=== PATIENT | female | born 1960 | race Caucasian/White ===

== ENCOUNTER → 2020-03-15 11:58 | Outpatient (BNVA) | payer OTHER, SELFPAY | PROVIDERS: Family Provider Family Medicine; PCP Family Medicine; Referring Provider Family Medicine; Visit Provider Family Medicine | DX: I95.9 Hypotension, unspecified (principal); R00.1 Bradycardia, unspecified; I49.3 Ventricular premature depolarization; I95.0 Idiopathic hypotension; M51.35 Other intervertebral disc degeneration, thoracolumbar region | CPT/HCPCS: 80053; 84439; 84443; 85025 ==

== ENCOUNTER 2020-05-05 13:19 | Outpatient (CLI) | payer OTHER, SELFPAY ==
--- NOTE | 2020-05-05 13:30 | USCV_ITS ---
Coco Dela Cruz Age: 59 Gender: F : 1960 Exam Date: 05/05/2020 13:42 Ordering Phys: Julia Lambert MD ([email or web address]) Technologist: Venus Higginbotham Exam Location: [facility] [place] Indication: chest pain BP: / HR: 84 Rhythm: PVCs Technical Quality: Good MEASUREMENTS (Male / Female) Normal Values 2D ECHO LV Diastolic Diameter PLAX 4.6 cm 4.2 - 5.9 / 3.9 - 5.3 cm LV Systolic Diameter PLAX 3.7 cm LV Chamber Size 4.0 cm IVS Diastolic Thickness 1.1 cm 0.6 - 1.0 / 0.6 - 0.9 cm IVS Systolic Thickness 1.7 cm LVPW Diastolic Thickness 1.8 cm 0.6 - 1.0 / 0.6 - 0.9 cm LVPW Systolic Thickness 1.6 cm RV Chamber Size 2.6 cm LVOT Diameter 2.0 cm LV Ejection Fraction 2D Teich 39.4 % LV Ejection Fraction MOD 2C 12.8 % LV Ejection Fraction 2C AL 29.5 % LA Diameter 4.1 cm LA Width 2.9 cm LA Height 3.1 cm RA Width 2.7 cm RA Height 3.7 cm Aorta at Sinotubular Diameter 3.3 cm M-MODE LV Diastolic Diameter MM 5.5 cm 4.2 - 5.9 / 3.9 - 5.3 cm LV Systolic Diameter MM 4.0 cm LV Ejection Fraction MM Teich 53.3 % IVS Diastolic Thickness MM 1.3 cm 0.6 - 1.0 / 0.6 - 0.9 cm IVS Systolic Thickness MM 1.4 cm LVPW Diastolic Thickness MM 1.1 cm 0.6 - 1.0 / 0.6 - 0.9 cm LVPW Systolic Thickness MM 1.3 cm RV Diastolic Diameter MM 1.3 cm Aortic Annulus Diameter 3.3 cm LA Ao Ratio MM 1.3 MV E Point Septal Separation 0.8 cm DOPPLER AV Peak Velocity 184.0 cm/s LVOT Peak Velocity 89.0 cm/s AV Area Cont Eq vti 1.5 cm squared AV Area Cont Eq pk 1.5 cm squared MV E' Velocity 14.0 cm/s TR Peak Velocity 239.0 cm/s TR Peak Gradient 22.8 mmHg TR Mean Velocity 79.9 cm/s TR Mean Gradient 2.9 mmHg TR Velocity Time Integral 26.6 cm TV Peak E Velocity 79.0 cm/s Right Atrial Pressure 3.0 mmHg Pulmonary Artery Systolic Pressu 25.8 mmHg PV Peak Velocity 56.0 cm/s RV Acceleration Time 0.1 s RV Ejection Time 0.3 s RV AcT/ET 0.5 FINDINGS Left Ventricle Normal left ventricular cavity size. Normal left ventricular systolic function. Left ventricular ejection fraction is estimated at 50-55 %. There is possible mild basal inferoseptal hypokinesis. Right Ventricle Normal right ventricular size and systolic function. Right ventricular systolic pressure 25.8 mmHg. Right Atrium Normal right atrial size. Left Atrium Upper normal left atrial size. Mitral Valve Mildly thickened mitral valve. No mitral valve stenosis. Moderate mitral valve regurgitation. Aortic Valve Aortic valve not well visualized. No aortic valve stenosis. Trace aortic valve regurgitation. Tricuspid Valve Structurally normal tricuspid valve. Trace tricuspid valve regurgitation. Pulmonic Valve No pulmonary valve stenosis. Trace pulmonary valve regurgitation. Pericardium No pericardial effusion. Aorta Normal size aortic root and proximal ascending aorta. CONCLUSIONS 1. Normal left ventricular cavity size and systolic function. Left ventricular ejection fraction is estimated at 50-55 %. There is possible mild basal inferoseptal hypokinesis. 2. Normal right ventricular size and systolic function. 3. Normal pulmonary artery pressure estimated 26 mmHg. 4. Moderate posteriorly directed mitral valve regurgitation. 5. Frequent PACs and PVCs noted during the study. 6. No prior similar studies to compare. Julia Lambert MD (Electronically Signed) Final Date: 07 May 2020 12:19 S
== END 2020-05-05 13:20 | disposition home or self-care (01) ==
LOC: RAD 13:21
PROVIDERS: PCP Family Medicine; Visit Provider Internal Medicine Cardiovascular Disease
DX: I49.3 Ventricular premature depolarization (principal); I34.0 Nonrheumatic mitral (valve) insufficiency; R07.9 Chest pain, unspecified
CPT/HCPCS: 93306

== ENCOUNTER → 2020-08-20 17:17 | Outpatient (BNVA) | payer OTHER, SELFPAY | PROVIDERS: PCP Family Medicine; Visit Provider Emergency Medicine | DX: Z11.59 Encounter for screening for other viral diseases (principal) | CPT/HCPCS: 87635 ==

== ENCOUNTER 2020-09-24 16:48 | Emergency (ER) | payer OTHER, SELFPAY ==
[2020-09-24 17:01] VITALS: BP 100/64; PULSE 93; RESP 18; TEMP 36.8; O2SAT 93; BMI 29.0
--- NOTE | 2020-09-24 17:20 | W.ED.ALLEREA ---
HPI - Allergic Reaction General: Chief complaint: Allergic Reaction Stated complaint: SPIDER BITE, HAVING ALLERGIC REACTION/DIFF BREATH Time Seen by Provider: 09/24/20 17:08 History of Present Illness: HPI narrative: 60-year-old female began having a rash this afternoon at around 330 presents here shortly after 5:00. She is a rash on her left forearm has been spreading proximally until boil is intensely pruritic. She is not sure what she got into that was new or different. She is not had any significant difficulty breathing. She denies any fever sweats chills nausea vomiting or diarrhea or any other symptoms. She is not had episodes like this in the past. MD complaint: allergic reaction and hives Onset (ago): hour(s) Exposure: unknown Associated symptoms: Reports itching and rash; Deny abdominal pain, difficulty breathing, dysphagia, dizziness, facial swelling, hoarseness, lip swelling, nausea, tongue swelling or vomiting Severity: moderate Treatment prior to arrival: none Previous Allergic Reaction History: none Review of Systems Const: Denies: fever(s), chills, body aches, change in appetite, fatigue or malaise ENMT: Denies: hoarseness Card: Denies: chest pain, edema, dyspnea on exertion or orthopnea Resp: Denies: dyspnea, productive cough or non-productive cough GI: Denies: abdominal pain, nausea, vomiting or dysphagia : Denies: flank pain, difficulty voiding, dysuria, urinary frequency or urinary urgency Skin/Breast: Denies: rash or pruritus Neuro: Denies: dizziness All/Imm: Denies: tongue swelling or facial swelling [facility] ED PFSH: Medical History (Updated 09/24/20 @ 17:22 by Enrique Cline DO) Degenerative disc disease Depression PVCs (premature ventricular contractions) Surgical History History of adenectomy History of appendectomy History of carpal tunnel release History of elbow surgery History of hand surgery History of oophorectomy History of surgery on wrist History of tonsillectomy History of total hysterectomy Social History Smoking and tobacco status: current every day smoker Alcohol intake: never Physical Exam Const: COMMON NORMALS: no acute distress GENERAL APPEARANCE: cooperative and comfortable ORIENTATION/CONSCIOUSNESS: Yes awake, Yes oriented to person, Yes oriented to place and Yes oriented to time HENMT: COMMON NORMALS: normocephalic, atraumatic and hearing grossly normal bilaterally HEAD & SCALP: normocephalic and atraumatic Eye: COMMON NORMALS: Equal, round and reactive pupils present, EOMs intact bilaterally, conjunctivae normal and no scleral icterus CONJUNCTIVA: Yes conjunctivae normal PUPIL: Yes Equal, round and reactive pupils present Neck/C-Spine: COMMON NORMALS: no JVD Lymph: LYMPHATIC: no lymphadenopathy noted and no lymphedema noted Resp: COMMON NORMALS: normal respiratory effort, No retractions, No use of accessory muscles and clear to auscultation bilaterally AUSCULTATION: clear to auscultation bilaterally Cardio: COMMON NORMALS: no JVD, regular rate, regular rhythm and No murmurs present (Cardio) RATE: regular rate RHYTHM: regular rhythm GI: COMMON NORMALS: Soft to palpation and No hepatosplenomegaly present AUSCULTATION: Yes normoactive bowel sounds PALPATION: Yes Soft to palpation, No Tenderness to palpation present (GI), No Guarding due to palpation present (GI) and Yes No hepatosplenomegaly present Extremity: COMMON NORMALS: normal to inspection, capillary refill normal, no clubbing, cyanosis or edema, no calf tenderness and no pedal edema Neuro: SENSORIUM/ORIENTATION: Yes oriented to person, Yes oriented to place and Yes oriented to time Skin: NARRATIVE SKIN EXAM: Urticaria of the left forearm is most dense is also present on the trunk more sparing pattern. No bulla no signs of infection or induration no sign of abscess. Course Vital Signs: Vital signs: Vital Signs Temperature 98.3 F 09/24/20 17:01 Pulse Rate 93 09/24/20 17:01 Respiratory Rate 18 09/24/20 17:01 Blood Pressure 100/64 09/24/20 17:01 Pulse Oximetry 93 09/24/20 17:01 Discharge Plan Discharge Patient Disposition: Home Clinical Impression: Allergic reaction Condition: Stable Prescriptions: New hydroxyzine HCl 25 mg tablet 25 mg PO Q6H PRN (Reason: itching) Qty: 20 RF: 0 methylprednisolone [Medrol (Hugo)] 4 mg tablets,dose pack See Rx Instructions .ROUTE .COMPLEX Qty: 21 RF: 0 No Action fluticasone propionate [Allergy Relief (fluticasone)] 50 mcg/actuation spray,suspension 2 spray INTRANASAL DAILY RF: 0 sertraline 100 mg tablet 100 mg PO DAILY 90 Days Qty: 90 RF: 3 hydrochlorothiazide 12.5 mg capsule See Rx Instructions .ROUTE .COMPLEX Qty: 90 RF: 3 trazodone 100 mg tablet 100 mg PO DAILY Qty: 90 RF: 1 Discharge Orders: Discharge ED (Routine); Ordered 09/24/20 Ordered By: Enrique Cline Referrals: Elio Bolaños MD [Primary Care Provider] - Discharge Diet: Usual diet Discharge Activity: Increase activity as tolerated Coding Level of Care Code ED [employer] Consultant for Ethel Patton
[2020-09-24] MEDS: diphenhydrAMINE 50 mg/mL SDV 1mL IM (17:29)
[2020-09-24 17:32] VITALS: BP 110/78; PULSE 97; RESP 20; O2SAT 93
== END 2020-09-24 17:42 | disposition home or self-care (01) ==
PROVIDERS: Emergency Provider Family Medicine; PCP Family Medicine
DX: T78.40XA Allergy, unspecified, initial encounter (principal); F17.210 Nicotine dependence, cigarettes, uncomplicated
CPT/HCPCS: 12345; 96372; 96374; 99281; 99283; J1200; J2930

== ENCOUNTER 2021-05-26 08:35 | Outpatient (CLI) | payer OTHER, SELFPAY ==
--- NOTE | 2021-05-26 09:00 | CT_ITS ---
WS: [id number] CT ABDOMEN AND PELVIS NONCONTRAST HISTORY: pelvic pain TECHNIQUE: Imaging performed through the abdomen and pelvis. Coronal and sagittal reformats are submi tted. All CT scans at [facility] use at least one of these dose optimization techniques: automated exposure control; mA and/or kV adjustment per patient size (includes targeted exams where d ose is matched to clinical indication); or iterative reconstruction. DLP: 968.05 mGycm COMPARISON: None available. Lower thorax: Lung bases are clear. Visualized heart is normal. Small hiatal hernia. Liver: Normal size liver. No mass or bile duct dilatation. Gallbladder: Numerous calcifications with variable density in the gallbladder. Gallbladder is slightl y contracted. No adjacent inflammation. Pancreas: Normal size and attenuation. Normal pancreatic duct. No pancreatitis or mass. Spleen: Normal. Adrenal glands: Normal RIGHT adrenal gland. Low-attenuation 18 x 10 mm mass in the LEFT adrenal gland with negative Hounsfield units. Right kidney: Normal size kidney with no mass or hydronephrosis. Left kidney: Normal size kidney with no mass or hydronephrosis. Aorta: Mild atherosclerosis abdominal aorta with no aneurysm. No free fluid, intraperitoneal air or significant lymphadenopathy. GI tract: Prior appendectomy. No GI tract obstruction or diverticulosis. Abdominal wall: Fat-containing umbilical hernia. Pelvis: Prior hysterectomy. Osseous structures: Mild lumbar spondylitic changes. CT/CT kidney stone [id number] IMPRESSION: 1. No renal calcifications or obstruction. 2. Prior appendectomy and hysterectomy. 3. Cholelithiasis without acute cholecystitis. Numerous mixed density gallston es present with mild wall thickening and contraction of the gallbladder. 4. LEFT adrenal adenoma.
== END 2021-05-26 08:36 | disposition home or self-care (01) ==
PROVIDERS: PCP Family Medicine; Visit Provider Family Medicine
DX: R10.2 Pelvic and perineal pain (principal); Q42.8 Congenital absence, atresia and stenosis of other parts of large intestine; Z90.710 Acquired absence of both cervix and uterus; K80.20 Calculus of gallbladder without cholecystitis without obstruction; D35.02 Benign neoplasm of left adrenal gland; Z20.822 Contact with and (suspected) exposure to COVID-19
CPT/HCPCS: 74176; 80053; 82150; 85025; 87635

== ENCOUNTER 2021-05-30 11:19 | Day surgery (SDC) | payer OTHER, SELFPAY ==
[2021-05-27 13:04] VITALS: BMI 29.5
[2021-05-30] VITALS (23 sets, daily range): BP systolic 98–150; BP diastolic 48–85; PULSE 48–85; RESP 16–20; TEMP 36.2–36.5; O2SAT 81–98
--- NOTE | 2021-05-30 11:34 | W.PM.OPSUD ---
Surgery/Procedure H&P Update DATE OF PROCEDURE: May 30, 2021 DATE H&P PERFORMED: 05/27/21 H&P UPDATE INFORMATION: I have reviewed H&P completed within last 30 days, I have examined patient prior to procedure and No changes to prior documentation PREOP DIAGNOSIS: Cholelithiasis PLANNED PROCEDURE: Operation Date: 05/30/21 12:40 Proposed Procedures p Laparoscopic Cholecystectomy 14503 K80.2(Not Applicable) - Tony Soto MD
[2021-05-30] MEDS: sodium chloride 0.9% 1,000 ML 30 ML IV (11:50)
--- NOTE | 2021-05-30 12:01 | ANES.PREANE2 ---
Pre-Anesthetic Assessment Pre-Anesthetic Assessment: Height/Weight: Height 1.68 m Weight 83.007 kg Temp Pulse Resp BP Pulse Ox 97.2 F L 48 L 18 115/58 95 05/30/21 11:41 05/30/21 11:41 05/30/21 11:41 05/30/21 11:41 05/30/21 11:41 Preop Diagnosis: Cholelithiasis Proposed Procedure: Operation Date: 05/30/21 12:40 Proposed Procedures p Laparoscopic Cholecystectomy 31987 K80.2(Not Applicable) - Tony Soto MD Familial anesthetic complications: none Was Beta Je taken within 24 hours: N/A Was Clonidine taken within 24 hours: N/A Last intake: Intake Last Liquid Date 05/29/21 Last Liquid Time 22:00 Last Solid Date 05/29/21 Last Solid Time 21:00 Social: Social History: Tobacco and No alcohol Exam: Pre-Anes Outpt Exam: alert, oriented x 3, clear to auscultation bilaterally and regular rate & rhythm Airway: Cervical ROM: WNL MP: 2 Dentition: False CV/HEM: CV/HEM: Arrythmia (PACs/PVCs) Anesthetic Plan: ASA status: 2 Anesthesia: General Risk of > 500 ml blood loss (7ml/kg in children): No Meds/Allergies Current Medications: Current Medications Generic Name Dose Route Start Last Admin Trade Name Freq PRN Reason Stop Dose Admin Sodium Chloride 1,000 mls @ 30 ml s/hr 05/30/21 11:30 05/30/21 11:50 Sodium Chloride 0.9% IV 05/31/21 11:29 30 mls/hr .Q24H DAX Administration PFSH Anesthesia PFSH: Medical History (Updated 05/27/21 @ 12:37 by Tony Soto MD) Degenerative disc disease Depression PVCs (premature ventricular contractions) Surgical History (Updated 05/27/21 @ 08:53 by Tony Soto MD) History of adenectomy History of appendectomy History of carpal tunnel release History of elbow surgery History of hand surgery History of oophorectomy History of right inguinal hernia repair History of surgery on wrist History of tonsillectomy History of total hysterectomy Social History Smoking and tobacco status: current every day smoker Alcohol intake: never Data Anesthesia Cardiac Studies: Holter Monitor 03/23/20
--- NOTE | 2021-05-30 14:00 | PM.OP ---
Operative Report Date of procedure: May 30, 2021 Pre-op Diagnosis: Cholelithiasis Post-op diagnosis: same Procedure Done: Laparoscopic cholecystectomy Specimens removed/disposition: gallbladder Surgeon: Tony Soto Anesthesia: General Condition: stable Disposition: PACU Procedure: The patient was taken to the operating room and was intubated under general anesthesia. After the antibiotic had been administered, the abdomen was prepped and draped in a sterile manner. Using a #15 blade, a 1 centimeter infraumbilical curvilinear incision was made and using an open Татьяна technique the peritoneal cavity was entered. A 10 millimeter port was placed and 15 millimeters of pneumoperitoneum was created. A 10 millimeter, 30 degrees scope was then introduced. Three 5 millimeter ports were placed in the epigastric, midclavicular and the anterior axillary line two fingerbreadths below the costal margin on the right side under the direct visualization. Ratcheted forceps were introduced into the lateral most port and was used to retract the fundus of the gallbladder cephalad and using forceps the infundibulum of the gallbladder was retracted laterally. Using L-hook cautery the peritoneum overlying the Calot's triangle was opened medially and laterally until the cystic duct and the cystic artery were skeletonized. Dissection was carried along the body of the gallbladder and after ensuring critical view of safety, 4 clips applied on the cystic duct and 3 clips applied on the cystic artery and cut leaving, 3 clips on the remaining portion of the duct and 2 clips on the remaining portion of the artery. The rest of the gallbladder was dissected off the liver using L-hook cautery. There was no bleeding or bile leaking noted from the gallbladder fossa and the clips appeared to be in place. An EndoCatch bag was introduced to remove the gallbladder. All the ports were removed under direct visualization and there was no bleeding noted from the port sites. The fascia of the umbilicus was closed using [id number] 0 Vicryl sutures and the subcutaneous tissue was approximated using 3-0 Vicryl sutures. The skin at all four ports were closed using 4-0 Monocryl and Dermabond. A total of 10 millimeters of 0.5% Marcaine was infiltrated around the port sites. The patient was stable throughout the procedure.
[2021-05-30] MEDS: ondansetron 2 mg/ML SDV 2 mL 4 MG IVP (14:26)
[2021-05-30] MEDS: fentaNYL 50 mcg/mL INJ 2mL IVP ×2 (14:46→14:51)
[2021-05-30] MEDS: metoclopramide 5 mg/mL SDV 2 mL 10 MG IVP ×2 (15:00→15:07)
[2021-05-30] MEDS: HYDROmorphone 1 mg/mL INJ 1 mL 0.5 MG IVP (15:14)
--- NOTE | 2021-05-30 15:14 | ANE.PACU2 ---
Inpatient post-anesthesia follow up: Airway intact: Yes Vital signs: Temperature 97.2 F Pulse Rate 70 Respiratory Rate 17 Blood Pressure 144/77 Pulse Oximetry 96 Oxygen Delivery Me thod Simple Mask Oxygen Flow Rate 8 Fraction of Inspir ed Oxygen Hydration adequate: Yes Nausea and vomiting: No Pain level: 2 Mental status: Baseline
[2021-05-30] MEDS: dexamethasone 4 mg/mL INJ IVP (15:19)
== END 2021-05-30 16:30 | disposition home or self-care (01) ==
PROVIDERS: PCP Family Medicine; Visit Provider Surgery
PROC: 0FT44ZZ Resection of Gallbladder, Percutaneous Endoscopic Approach (ICD-10-PCS; CPT 47562; principal; 2021-05-30 12:40)
DX: K80.10 Calculus of gallbladder with chronic cholecystitis without obstruction (principal); M19.90 Unspecified osteoarthritis, unspecified site; F32.9 Major depressive disorder, single episode, unspecified; F17.210 Nicotine dependence, cigarettes, uncomplicated
CPT/HCPCS: 47562; 88304; J0690; J1100; J1170; J2405; J2704; J2710; J2765; J3010; J3490; J7030

== ENCOUNTER 2023-01-11 09:08 | Outpatient (CLI) | payer OTHER, SELFPAY ==
--- NOTE | 2023-01-11 10:09 | XR_ITS ---
WS: [id number] Exam: XR KUB [id number] Date/Time of Exam: 01/11/2023 10:18 AM Reason For Exam: CHRONIC ABDOMINAL PAIN Comparison 02/04/2009. No bowel obstruction or free air. No sign of organ enlargement. Signs of prior cholecystectomy. Bony structures are intact. XR/XR KUB [id number] IMPRESSION: 1. No acute abdominal process.
--- NOTE | 2023-01-11 10:09 | XR_ITS ---
WS: [id number] Exam: XR chest 2V* [id number] Date/Time of Exam: 01/11/2023 10:18 AM Reason For Exam: DYSPNEA No priors. The lungs are clear and fully expanded. Heart size is normal. The mediastinum is normal in contour. A therosclerosis of the thoracic aorta. No pleural effusions. Spondylosis of the thoracic spine. XR/XR chest 2V* [id number] IMPRESSION: 1. No acute cardiopulmonary finding.
[2023-01-11 10:10] LABS: Add Urine Microscopic? NO; Charge for UA Resulting for Rev
[2023-01-11 10:14] LABS: Basophils % 0.4 %; Eosinophils # 0.1 10^3/uL (0.0-0.8); Eosinophils % 1.4 %; Hematocrit 44.8 % (37.0-47.0); Hemoglobin 14.2 g/dL (11.5-15.3); Lymphocytes # 1.5 10^3/uL (0.8-4.8); Lymphocytes % 21.4 %; Mean Corpuscular HGB Conc 31.7 g/dL (30.0-36.0); Mean Corpuscular Hemoglobin 30.7 pg (28.0-34.0); Mean Corpuscular Volume 96.8 fl (81-99); Mean Platelet Volume 10.2 fL (7.4-10.4); Monocytes # 0.4 10^3/uL (0.2-0.9); Monocytes % 5.8 %; Neutrophils # 5.01 10^3/uL (1.8-7.7); Neutrophils % 70.7 %; Nucleated Red Blood Cells % 0 %; Platelet Count 203 10^3/cmm (130-400); Red Blood Count 4.63 10^6/uL (4.1-5.3); Red Cell Distribution Width 14.6 % (12.1-15.1); White Blood Count 7.1 10^3/uL (4.0-10.0)
[2023-01-11 10:20] LABS: Bilirubin Urine Neg (Negative); Blood Urine Neg (Negative); Glucose Urine UA Norm (Normal); Ketones Urine Negative (Negative); Leukocyte Esterase Urine Negative (Negative); Nitrate Urine Negative (Negative); Protein Urine Neg (Negative); Urine Appearance Clear (CLEAR); Urine Color Yellow (Yellow); Urobilinogen Urine Neg (Negative); pH Urine 6 (5-7)
[2023-01-11 10:51] LABS: Alanine Aminotransferase 18 U/L (0-33); Albumin Level 4.2 g/dL (3.5-5.2); Alkaline Phosphatase 62 U/L (35-105); Amylase 28 U/L (28-100); Anion Gap 15.2 (5-19); Aspartate Amino Transferase 17 U/L (0-32); Blood Urea Nitrogen 13 mg/dL (8-23); Calcium 8.8 mg/dL (8.5-10.5); Carbon Dioxide 29 mmol/L (22-29); Chloride 100 mmol/L (98-107); Glomerular Filtration Rate 85.1 mL/min (90-130); Glucose 101 mg/dL (65-115); Lipase 24 U/L (13-60); Osmolality Calculated 290 mOsm/kg (285-295); Potassium 4.2 mmol/L (3.5-5.1); Sodium 140 mmol/L (136-145); Total Bilirubin 0.2 mg/dL (0.15-1.2); Total Protein 7.2 g/dL (6.6-8.7)
== END 2023-01-11 09:09 | disposition home or self-care (01) ==
PROVIDERS: PCP Family Medicine; Visit Provider Electrodiagnostic Medicine
DX: R10.9 Unspecified abdominal pain (principal); R06.00 Dyspnea, unspecified; G89.29 Other chronic pain
CPT/HCPCS: 36415; 71046; 74018; 80053; 81003; 82150; 83690; 85025

== ENCOUNTER 2023-02-07 10:24 | Outpatient (CLI) | payer OTHER, SELFPAY ==
--- NOTE | 2023-02-07 10:48 | CT_ITS ---
WS: [id number] CT ABDOMEN AND PELVIS WITH AND WITHOUT CONTRAST HISTORY: CHRONIC ABDOMINAL PAIN TECHNIQUE: Unenhanced 5 mm axial imaging first performed through the abdomen. Post contrast imaging t hrough the abdomen and pelvis. Oral contrast has been provided. Sagittal and coronal reformats are s ubmitted. All CT scans at [facility] use at least one of these dose optimization techniques: automated exposure control; mA and/or kV adjustment per patient size (includes targeted exams where d ose is matched to clinical indication); or iterative reconstruction. CONTRAST: Omnipaque 350; 95 mL IV. DLP: 1476.37 mGy.cm COMPARISON: 05/26/2021 Lung bases are clear. Normal size heart. Small hiatal hernia. Mild diffuse hepatic steatosis. No mass or bile duct dilatation. Normal portal vein. Prior cholecyste ctomy. Normal spleen. Spleen is top normal size at 13.8 cm but similar to prior studies. Normal pancr eas. LEFT adrenal mass measures 10 x 18 mm. Consistent with an adenoma as previously described on 05/15. Normal RIGHT adrenal gland. Mild atherosclerosis aorta. No aneurysm. Small fat-containing umb ilical hernia. Normally distended stomach. No small bowel obstruction. No mucosal or submucosal edema. No colitis. P rior appendectomy. A few scattered diverticula. No adenopathy or ascites. Prior hysterectomy. No pelvic mass. CT/CT abdomen pelvis wo/w [id number] IMPRESSION: 1. No acute abdominal or pelvic abnormalities. 2. No adenopathy or ascites. 3. Prior cholecystectomy, appendectomy and hysterectomy. 4. No GI tract obstruction. No colitis. 5. Mild diffuse hepatic steatosis. 6. Stable LEFT adrenal adenoma.
[2023-02-07] MEDS: iohexol 350 mg/mL 500 mL Btl (per mL) PO (11:01)
[2023-02-07] MEDS: iohexol 350 mg/mL 500 mL Btl (per mL) IV (11:50)
== END 2023-02-07 10:25 | disposition home or self-care (01) ==
LOC: RAD 10:27
PROVIDERS: PCP Family Medicine; Visit Provider Electrodiagnostic Medicine
DX: R10.9 Unspecified abdominal pain (principal); D35.02 Benign neoplasm of left adrenal gland
CPT/HCPCS: 74178; Q9967

== ENCOUNTER → 2023-08-26 14:24 | Outpatient (BNVA) | payer OTHER, SELFPAY | PROVIDERS: PCP Family Medicine; Visit Provider Nurse Practitioner | DX: R30.0 Dysuria (principal); N39.0 Urinary tract infection, site not specified | CPT/HCPCS: 81000 ==

== ENCOUNTER → 2023-11-06 13:00 | Outpatient (BNVA) | payer OTHER, SELFPAY | PROVIDERS: PCP Family Medicine; Visit Provider Family Medicine | DX: G45.9 Transient cerebral ischemic attack, unspecified (principal); R55 Syncope and collapse | CPT/HCPCS: 80053; 84484; 85025 ==

== ENCOUNTER 2023-11-14 11:35 | Outpatient (CLI) | payer OTHER, SELFPAY ==
--- NOTE | 2023-11-14 12:00 | CT_ITS ---
WS: [id number] CT HEAD NONCONTRAST HISTORY: altered mental status/near syncope 11/03/23 TECHNIQUE: Contiguous axial imaging performed through the brain in 2.5 mm imaging. Bone and soft tiss ue windows. Sagittal and coronal reformats reviewed. All CT scans at [facility] use at least one of these dose optimization techniques: automated exposure control; mA and/or kV adjustment per pa tient size (includes targeted exams where dose is matched to clinical indication); or iterative recon struction. DLP: 1033.18 mGy.cm COMPARISON: None available. No acute intracranial hemorrhage, midline shift or mass effect. No atrophy or prior infarcts or herniation. Ventricles: Normal size with no hydrocephalus. Mild arterial calcifications in the distal carotid arteries. Paranasal sinuses: As visualized are clear. Mastoid air cells: Well pneumatized. Calvarium and scalp: Skull is intact with no soft tissue edema or swelling. IMPRESSION: Negative head CT.
== END 2023-11-14 11:36 | disposition home or self-care (01) ==
LOC: RAD 11:35
PROVIDERS: PCP Family Medicine; Visit Provider Family Medicine
DX: G45.9 Transient cerebral ischemic attack, unspecified (principal); R55 Syncope and collapse
CPT/HCPCS: 70450

== ENCOUNTER → 2024-07-04 17:00 | Outpatient (BNVA) | payer OTHER, SELFPAY | PROVIDERS: PCP Family Medicine; Visit Provider Nurse Practitioner | DX: R30.0 Dysuria (principal); R10.9 Unspecified abdominal pain | CPT/HCPCS: 81000; 87086 ==

== ENCOUNTER 2024-08-25 07:12 | Day surgery (SDC) | payer OTHER, SELFPAY ==
[2024-08-25 07:36] VITALS: BP 112/66; PULSE 82; RESP 16; TEMP 36.1; O2SAT 98; BMI 33.0
[2024-08-25] MEDS: sodium chloride 0.9% 1,000 ML 30 ML IV (07:46)
--- NOTE | 2024-08-25 08:06 | ANES.PREANE2 ---
Pre-Anesthetic Assessment Height/Weight: Height 1.68 m Weight 92.986 kg Temp Pulse Resp BP Pulse Ox O2 Del Method 97.0 F L 82 16 112/66 98 Room Air 08/25/24 07:36 08/25/24 07:36 08/25/24 07:36 08/25/24 07:36 08/25/24 07:36 08/25/24 07:36 Preop Diagnosis: screening Operation Date: 08/25/24 08:15 Proposed Procedures p Colonoscopy 98722, G0121, Z12.11(Not Applicable) - Martínez Singh MD Familial anesthetic complications: none Was Beta Je taken within 24 hours: N/A Was Clonidine taken within 24 hours: N/A Last intake: Intake Last Liquid Date 08/24/24 Last Liquid Time 21:00 Last Solid Date 08/23/24 Last Solid Time 18:00 Social No alcohol and No tobacco Exam alert, oriented x 3, clear to auscultation bilaterally and regular rate & rhythm Airway Submandibular: within normal limits Cervical ROM: within normal limits Mallampati: Class II Dentition: full Comments: Comments: missing back lower teeth History/ROS No significant history except as noted Pulmonary None reported CV/HEM Arrythmia and None reported None reported Hepatic None reported GI None reported Metabolic None reported Musc/skel None reported Neuropsych None reported Anesthetic Plan ASA status: 2 Anesthesia: MAC Risk of > 500 ml blood loss (7ml/kg in children): No Medications/Allergies Home Medications Medication Instructions Recorded Confirmed Last Taken Type fluticasone propionate 50 1 spray intranasal PRN PRN Allergy 08/26/23 08/25/24 Unknown History mcg/actuation nasal Symptoms spray,suspension hydrocodone 5 mg-acetaminophen 325 1 tab PO Q6H PRN pain 7 days #28 01/22/24 08/25/24 Unknown Rx mg tablet tabs sertraline 100 mg tablet 100 mg PO DAILY 90 days #90 tabs 01/22/24 08/25/24 08/24/24 Rx trazodone 100 mg tablet 100 mg PO BEDTIME PRN Sleep 08/20/24 08/25/24 08/24/24 History Allergies Allergy/AdvReac Type Severity Reaction Status Date / Time aspirin Allergy SOB Verified 08/22/24 08:37 ibuprofen [From Motrin] Allergy sob Verified 08/22/24 08:37 ketorolac [From Toradol] Allergy SOB Verified 08/22/24 08:37 methocarbamol [From Robaxin] Allergy hives Verified 08/22/24 08:37 Current Medications Generic Name Dose Route Start Last Admin Trade Name Ksenia PRN Reason Stop Dose Admin Sodium Chloride 1,000 mls @ 30 mls/hr 08/25/24 07:30 08/25/24 07:46 Sodium Chloride 0.9% IV 30 mls/hr .Q24H DAX Administration PFSH Anesthesia Medical History Depression PVCs (premature ventricular contractions) Degenerative disc disease Surgical History (Updated 07/17/24 @ 08:14 by Patricia Lamas, CT) Status post laparoscopic cholecystectomy (05/30/21) History of right inguinal hernia repair History of total hysterectomy History of carpal tunnel release History of elbow surgery History of hand surgery History of surgery on wrist History of oophorectomy History of tonsillectomy History of adenectomy History of appendectomy Family History (Updated 07/17/24 @ 08:16 by Patricia Lamas, CT) Brother Cancer 1 brother had cancer in his abdomen and the other brother had 6 ft of colon removed Social History Smoking and tobacco/nicotine status: current every day tobacco/nicotine user (vape) Alcohol intake: never Substance/Drug Use: never Data Anesthesia Cardiac Studies: Echocardiogram Ultrasound 05/05/20 Holter Monitor 03/23/20
--- NOTE | 2024-08-25 08:23 | W.PM.OPSFHP ---
Same Day Surgery H&P Indication for Procedure/HPI DATE OF PROCEDURE: August 25, 2024 CHIEF COMPLAINT/INDICATIONFOR SURGICAL PROCEDURE: screening colonoscopy PREOP DIAGNOSIS: screening PLANNED PROCEDURE: Operation Date: 08/25/24 08:15 Proposed Procedures p Colonoscopy 06998, G0121, Z12.11(Not Applicable) - Martínez Singh MD Medications/Allergies* Home Medications Medication Instructions Recorded Confirmed Type fluticasone propionate 50 1 spray intranasal PRN PRN Allergy 08/26/23 08/25/24 History mcg/actuation nasal Symptoms spray,suspension trazodone 100 mg tablet 100 mg PO BEDTIME PRN Sleep 08/20/24 08/25/24 History Allergies/Adverse Reactions Allergy/AdvReac Type Severity Reaction Status Date / Time aspirin Allergy SOB Verified 08/22/24 08:37 ibuprofen [From Motrin] Allergy sob Verified 08/22/24 08:37 ketorolac [From Toradol] Allergy SOB Verified 08/22/24 08:37 methocarbamol [From Robaxin] Allergy hives Verified 08/22/24 08:37 Current Medications: Generic Name Dose Route Start Last Admin Trade Name Freq PRN Reason Stop Dose Admin Sodium Chloride 1,000 mls @ 30 mls/hr 08/25/24 07:30 08/25/24 07:46 Sodium Chloride 0.9% IV 30 mls/hr .Q24H DAX Administration Pertinent History/Comorbid Conditions* Medical History (Updated 11/06/23 @ 23:09 by Elio Bolaños MD) Depression PVCs (premature ventricular contractions) Degenerative disc disease Surgical History (Updated 06/10/21 @ 15:40 by Tony Soto MD) Status post laparoscopic cholecystectomy (05/30/21) History of right inguinal hernia repair History of total hysterectomy History of carpal tunnel release History of elbow surgery History of hand surgery History of surgery on wrist History of oophorectomy History of tonsillectomy History of adenectomy History of appendectomy Family History (Updated 07/17/24 @ 08:16 by SHERYL Chance) Cancer Brother 1 brother had cancer in his abdomen and the other brother had 6 ft of colon removed Social History Smoking and tobacco/nicotine status: current every day tobacco/nicotine user (vape) Alcohol intake: never Substance/Drug Use: never Pertinent Exam Findings alert, oriented x 3, clear to auscultation bilaterally, regular rate & rhythm and procedure specific exam findings Abdomen soft, nt, nd Recommendations Surgery/Procedure today Coding Level of Care Code Acute Code for Chg Fwd
[2024-08-25 08:59] VITALS: BP 93/60; PULSE 75; RESP 16; TEMP 36.4; O2SAT 93
[2024-08-25 09:09] VITALS: BP 107/73; PULSE 76; RESP 16; O2SAT 92
[2024-08-25 09:20] VITALS: BP 108/79; PULSE 75; RESP 16; O2SAT 92
--- NOTE | 2024-08-25 09:50 | ANE.PACU2 ---
Inpatient post-anesthesia follow up: Airway intact: Yes Vital signs: Temperature 97.6 F Pulse Rate 75 Respiratory Rate 16 Blood Pressure 108/79 Pulse Oximetry 92 Oxygen Delivery Me thod Room Air Oxygen Flow Rate Fraction of Inspir ed Oxygen Hydration adequate: Yes Nausea and vomiting: No Pain level: 1 Mental status: Baseline
== END 2024-08-25 09:50 | disposition home or self-care (01) ==
PROVIDERS: PCP Family Medicine; Visit Provider Student in an Organized Health Care Education/Training Program
PROC: 0DJD8ZZ Inspection of Lower Intestinal Tract, Via Natural or Artificial Opening Endoscopic (ICD-10-PCS; CPT 45378; principal; 2024-08-25 08:15)
DX: Z12.11 Encounter for screening for malignant neoplasm of colon (principal); D12.4 Benign neoplasm of descending colon; D12.3 Benign neoplasm of transverse colon; K57.30 Diverticulosis of large intestine without perforation or abscess without bleeding; F17.200 Nicotine dependence, unspecified, uncomplicated; F32.A Depression, unspecified
CPT/HCPCS: 45380; 45385; 88305; J2704; J7030

== ENCOUNTER 2025-05-28 07:46 | Outpatient (CLI) | payer OTHER, SELFPAY ==
--- NOTE | 2025-05-28 08:00 | MM_ITS ---
WS: [id number] BILATERAL SCREENING DIGITAL TOMOSYNTHESIS MAMMOGRAM WITH CAD HISTORY: screening COMPARISON: 12/10/2017 Bilateral CC and MLO views with tomosynthesis and synthetic mammography submitted. Computer aided detection analyzed. Breast composition: There are scattered areas of fibroglandular density. No suspicious masses, microcalcifications or architectural distortion. Asymmetries are stable in each breast. Benign calcifications in each breast. MM/MM scr BI tomosynthesis [id number] IMPRESSION: BI-RADS: 2 - Benign. FOLLOW UP: 1 Year Follow-up
== END 2025-05-28 07:47 | disposition home or self-care (01) ==
LOC: RAD 07:47
PROVIDERS: PCP Family Medicine; Visit Provider Family Medicine
DX: Z12.31 Encounter for screening mammogram for malignant neoplasm of breast (principal); R92.323 Mammographic fibroglandular density, bilateral breasts; R92.1 Mammographic calcification found on diagnostic imaging of breast
CPT/HCPCS: 77063; 77067